=== PATIENT | female | born 2000 | race African-American/Black ===

== ENCOUNTER 2019-06-04 12:15 | Emergency (ER) | payer SELFPAY ==
[~2019-06-04] VITALS: Ht 170.2 cm; Wt 46.7 kg
[2019-06-04] MEDS ORDERED: PENI500T PO (13:00)
[2019-06-04 13:05] VITALS: BP 107/55
--- NOTE | 2019-06-04 13:05 | PHYS DOC ---
Adult General Chief Complaint Chief Complaint: SORE THROAT HPI HPI Patient is a 18 year old F NO PMH TWO DAYS OF SORE THROAT SUBJ FEVER NO COUGH HARD TO SWALLOW NONRADIATING Review of Systems Review of Systems Constitutiona Musculoskeletal: Denies back pain or joint pain [] Integument: Denies rash or skin lesions [] Neurologic: Denies , focal weakness or sensory changes [] Endocrine: Denies polyuria or polydipsia [] All other systems were reviewed and found to be within normal limits, except as documented in this note. Physical Exam Physical Exam Constitutional: Well developed, well nourished, no acute distress, non-toxic appearance. [] HENT: Normocephalic, EXUDATE AND SWOLLEN TONSIL NO ASYMMETRY UVULA MIDLINE Eyes: PERRLA, EOMI, conjunctiva normal, no discharge. [] Neck: Normal range of motion, no tenderness, supple, no stridor. [] Cardiovascular:Heart rate regular rhythm, no murmur [] Back: No tenderness, no CVA tenderness. [] Extremities: No tenderness, no cyanosis, no clubbing, ROM intact, no edema. [] Neurologic: Alert and oriented X 3, normal motor function, normal sensory function, no focal deficits noted. [] Psychologic: Affect normal, judgement normal, mood normal. [] EKG EKG [] Radiology/Procedures Radiology/Procedures [] Course & Med Decision Making Course & Med Decision Making Pertinent Labs and Imaging studies reviewed. (See chart for details) []BY BEKAH WILL TREAT. PT STABLE Dragon Disclaimer Dragon Disclaimer This electronic medical record was generated, in whole or in part, using a voice recognition dictation system. Departure Departure Impression: Primary Impression: Sore throat Disposition: 01 HOME, SELF-CARE Condition: STABLE Patient Instructions: Sore Throat, [id number] Scripts Penicillin V Potassium (PENICILLIN V POTASSIUM) 500 Mg Tablet 1 TAB PO TID, #30 TAB Prov: HOMER GRIFFITH MD 06/04/19 HOMER GRIFFITH MD Jun 04, 2019 13:05
== END 2019-06-04 13:32 | disposition home or self-care (01) ==
LOC: ER 12:15
DX: J02.9 Acute pharyngitis, unspecified (principal); R50.9 Fever, unspecified; R05 Cough; R13.10 Dysphagia, unspecified
CPT/HCPCS: 99283